=== PATIENT | male | born 1995 | race Hispanic/Latino ===

== ENCOUNTER 2019-10-14 17:36 | Emergency (ER) | payer BC ==
[2019-10-14] MEDS ORDERED: SODIUM CHLORIDE 0.9% 50 ML IV ONE (18:13)
[2019-10-14] MEDS ORDERED: KETOROLAC TROMETHAMINE 30MG/ML ONE (18:13)
[2019-10-14] MEDS ORDERED: CEFTRIAXONE SODIUM 1 GM ONE (18:13)
[2019-10-14] MEDS ORDERED: ACETAMINOPHEN 325 MG TAB ONE (18:14)
[2019-10-14 18:28] LABS: BASOPHILS % (AUTO) 0.2 % (0.0-5.0); EOSINOPHILS % (AUTO) 0.1 % (0.0-8.0); HEMATOCRIT 44.3 % (42-54); LYMPHOCYTES % (AUTO) 3.2 % (21.0-51.0); MEAN CORPUSCULAR HEMOGLOBIN 30.8 pg (27.0-33.0); MEAN CORPUSCULAR HGB CONC 34.5 g/dL (32.0-36.0); MEAN CORPUSCULAR VOLUME 89.1 fL (79-99); MONOCYTES % (AUTO) 1.8 % (3.0-13.0); NEUTROPHILS % (AUTO) 94.1 % (40.0-77.0); PLATELET COUNT (AUTO) 150 K/uL (130-400); RED BLOOD CELL COUNT(AUTO) 4.97 MIL/uL (4.50-6.20); WHITE BLOOD COUNT (AUTO) 12.5 K/uL (4.8-10.8)
[2019-10-14 18:52] LABS: ALBUMIN 4.8 g/dL (3.5-5.0); CREATININE 1.1 mg/dL (0.5-1.5); INR 0.99 (0.85-1.15); POTASSIUM 3.4 mmol/L (3.5-5.1); PROTHROMBIN TIME 10.7 SEC (9.6-11.6)
[2019-10-14 18:57] LABS: PARTIAL THROMBOPLASTIN TIME 29.4 SEC (26.3-35.5)
[2019-10-14 19:15] LABS: BILIRUBIN,TOTAL 1.2 mg/dL (0.2-1.0); TOTAL PROTEIN, SERUM 8.6 g/dL (6.0-8.3)
[2019-10-14] MEDS ORDERED: ONDANSETRON HCL 4 MG/2 ML VIAL ONE (19:23)
== END 2019-10-14 20:18 | disposition home or self-care (01) ==
LOC: EDH 17:36
DX: L03.115 Cellulitis of right lower limb (principal); R50.9 Fever, unspecified
CPT/HCPCS: 36415; 71045; 73630; 80053; 83605; 85025; 85610; 85651; 85730; 86140; 87040 ×2; 87804 ×2; 96374; 96375; 99285; J0696; J1885; J2405

== ENCOUNTER 2023-06-22 12:01 | Emergency (ER) | payer BC, OTHER ==
[~2023-06-22] VITALS: Ht 177.8 cm; Wt 72.6 kg
[2023-06-22 12:16] VITALS: BP 157/94; PULSE 87; RESP 18
[2023-06-22] MEDS ORDERED: HYDR100C2 PO (12:37)
== END 2023-06-22 13:11 | disposition home or self-care (01) ==
LOC: EDH 12:01
DX: F43.0 Acute stress reaction (principal)